=== PATIENT | female | born 1960 | race Caucasian/White ===

== ENCOUNTER → 2017-02-25 | Outpatient (CLI) | payer BC | END | disposition home or self-care (01) | DX: R26.2 Difficulty in walking, not elsewhere classified (principal); M17.11 Unilateral primary osteoarthritis, right knee; M25.561 Pain in right knee; M25.661 Stiffness of right knee, not elsewhere classified; M62.81 Muscle weakness (generalized) | CPT/HCPCS: 97110 GP; 97150 GO; 97161 GP; 97165 GO ==

== ENCOUNTER 2017-03-11 06:58 | Inpatient (IN) | payer BC ==
[~2017-03-11] VITALS: Ht 157.5 cm; Wt 79.4 kg
[~2017-03-11 06:58] MED LIST: CO Q-10100 MG PO; CRESTOR20 MG PO; CYANOCOBALAM1000 MCG PO; DAILY VALUE1 EACH PO; FISH OIL 1,0001 EAC7 PO; KLONOPIN0.5 M1 PO; SINGULAIR10 MG PO; VITAMIN D32000 UNI1 PO
[2017-03-11 07:56] VITALS: BP 125/81
[2017-03-11 12:10] LABS: HEMATOCRIT 33.2 % (36.0-46.0); MCH 29.1 PG (29.0-34.0); MCHC 32.5 G/DL (30.0-36.0); MCV 89.5 FL (83-99); MEAN PLAT.VOLUME 10.1 uM^3 (9.5-12.4); PLATELET COUNT 197 K/uL (156-360); RBC DIS.WIDTH-CV 13.4 % (11.8-14.6); RBC DIS.WIDTH-SD 43.8 % (39-53); RED BLOOD COUNT 3.71 M/uL (3.80-5.20); WHITE BLOOD COUNT 5.5 K/uL (4.1-10.2)
[2017-03-11 12:37] VITALS: BP 122/59
[2017-03-11 16:00] VITALS: BP 126/65
[2017-03-11 20:20] VITALS: BP 129/72
[2017-03-12 04:20] VITALS: BP 148/72
[2017-03-12 06:42] LABS: HEMATOCRIT 33.8 % (36.0-46.0); MCV 89.2 FL (83-99)
[2017-03-12 07:05] LABS: ANION GAP 10 MEQ/L (2-14); CHLORIDE 101 MEQ/L (99-109); GFR ESTIMATE (CALCULATED) > 59 mL/min/; GLUCOSE 124 mg/dL (70-99); POTASSIUM 3.6 MEQ/L (3.7-5.4); SAMPLE HEMOLYSIS CHECK 1; SAMPLE ICTERIC CHECK 0; SAMPLE LIPEMIA CHECK 0; SODIUM 136 MEQ/L (136-147); UREA NITROGEN (BUN) 12 mg/dL (9-23)
[2017-03-12 08:00] VITALS: BP 133/68
[2017-03-12 12:00] VITALS: BP 147/68
[2017-03-12 15:49] VITALS: BP 134/71
[2017-03-12 20:06] VITALS: BP 140/74
[2017-03-13] VITALS: BP 134/75
[2017-03-13 04:20] VITALS: BP 116/70
[2017-03-13 06:18] LABS: HEMATOCRIT 31.1 % (36.0-46.0); MCV 87.9 FL (83-99)
[2017-03-13] MEDS ORDERED: LOVENOX40 MG/0.4 SC (08:11)
[2017-03-13] MEDS ORDERED: ENDOCET 5-3251 EACH PO (08:11)
[2017-03-13] MEDS ORDERED: SENNA PLUS TAB1 EACH PO (08:11)
[2017-03-13] MEDS ORDERED: CELECOXIB200 MG PO (08:11)
[2017-03-13 08:14] VITALS: BP 130/67
[2017-03-13 12:08] VITALS: BP 121/70
== END 2017-03-13 13:35 | DRG 470 ==
LOC: 2SOUTH 06:58 → 3WEST 12:14 → 2SOUTH 12:18 → 3WEST 03-13 13:35
PROVIDERS: Orthopaedic Surgery
PROC: 0SRC0J9 Replacement of Right Knee Joint with Synthetic Substitute, Cemented, Open Approach (ICD-10-PCS; principal; 2017-03-11)
DX: M17.11 Unilateral primary osteoarthritis, right knee (principal); E55.9 Vitamin D deficiency, unspecified; N95.1 Menopausal and female climacteric states; R76.11 Nonspecific reaction to tuberculin skin test without active tuberculosis; E78.5 Hyperlipidemia, unspecified; F41.9 Anxiety disorder, unspecified; J30.9 Allergic rhinitis, unspecified; K21.9 Gastro-esophageal reflux disease without esophagitis; M71.21 Synovial cyst of popliteal space [Baker], right knee; M85.80 Other specified disorders of bone density and structure, unspecified site; Z80.3 Family history of malignant neoplasm of breast; Z82.0 Family history of epilepsy and other diseases of the nervous system; Z82.49 Family history of ischemic heart disease and other diseases of the circulatory system; Z82.61 Family history of arthritis; N64.9 Disorder of breast, unspecified; Z87.440 Personal history of urinary (tract) infections; J32.9 Chronic sinusitis, unspecified; I83.90 Asymptomatic varicose veins of unspecified lower extremity; R51 Headache; M54.2 Cervicalgia; M54.9 Dorsalgia, unspecified; K59.00 Constipation, unspecified; M51.36 Other intervertebral disc degeneration, lumbar region; R53.83 Other fatigue; F51.02 Adjustment insomnia
CPT/HCPCS: 73560; 80048; 85014; 85018; 85027; C1713; J0131; J0690; J1100; J1170; J1650; J1885; J2250; J2405; J3010; J7030; J7050

== ENCOUNTER → 2017-11-14 | Outpatient (CLI) | payer BC ==
[~2017-11-14] MED LIST changes: +CELECOXIB200 MG PO; +ENDOCET 5-3251 EACH PO; +LOVENOX40 MG/0.4 SC; +SENNA PLUS TAB1 EACH PO
== END | disposition home or self-care (01) ==
LOC: CDC 08:55
DX: Z01.810 Encounter for preprocedural cardiovascular examination (principal); M75.122 Complete rotator cuff tear or rupture of left shoulder, not specified as traumatic; M75.42 Impingement syndrome of left shoulder
CPT/HCPCS: 93000